=== PATIENT | male | born 1975 | race African-American/Black ===

== ENCOUNTER 2018-09-29 09:28 | Emergency (ER) | payer BC ==
[~2018-09-29] VITALS: Ht 187.9 cm; Wt 90.7 kg
--- NOTE | ~2018-09-29 | EKG ---
[place], [place] ELECTROCARDIOGRAM REPORT NAME: CIERA JOHNSON JR UNIT #: [id number] ROOM: DOCTOR: EPIPHANY DRAFT REPORT BIRTHDATE: [birth year] [facility] Test Date: 2018-09-29 Test Time: 10:18:46 Pat Name: CIERA JOHNSON Department: ER-3 Room: Gender: M Button Sawyer: Deneen Toscano : 1975 Requested By: FLORA LEE Order Number: [id number] Reading MD: Aparna Ann MD Measurements Intervals [place] Rate: 84 P: 82 DC: 154 QRS: -58 QRSD: 110 T: 64 QT: 388 QTc: 459 Interpretive Statements Sinus rhythm LAD, consider left anterior fascicular block Abnormal R-wave progression, early transition ST elevation suggests acute pericarditis Baseline wander in lead(s) V2 No previous ECG available for comparison Electronically Signed On 10-02-2018 12:04:32 PDT by Aparna Ann MD CM:EKGRPT:ELECTROCARDIOGRAM REPORT [id number] FLORA TAPIA DRAFT REPORT FLORA LEE MD
[2018-09-29 09:46] LABS: BASO # 0.1 10*3/uL (0.0-0.1); BASO % 0.4 % (0.0-1.0); EOS # 0.2 10*3/uL (0.0-0.4); HEMATOCRIT 49.9 % (42.0-52.0); HEMOGLOBIN 17.1 g/dl (14.0-18.0); LYMPH # 2.9 10*3/uL (1.3-4.4); LYMPH % 16.9 % (27.0-41.0); MEAN CELL VOLUME 91.2 fl (80.0-94.0); MEAN CORPUSCULAR HGB 31.3 pg (27.0-31.0); MEAN CORPUSCULAR HGB CONC 34.3 g/dl (33.0-37.0); MEAN PLATELET VOLUME 10.1 fl (9.6-12.3); NEUT # 13.1 10*3/uL (2.3-7.9); NEUT % 75.4 % (47.0-73.0); PLATELET COUNT AUTOMATED 329 10*3/uL (130-400); RED BLOOD COUNT 5.47 10*6/uL (4.50-5.90); RED CELL DISTRI WIDTH 12.7 % (0-14.5); WHITE BLOOD COUNT 17.3 10*3/uL (4.8-10.8)
[2018-09-29 10:00] LABS: ALBUMIN 4.7 gm/dl (3.1-4.5); ALKALINE PHOSPHATASE 86 U/L (45-117); BUN 11 mg/dl (7-24); CHLORIDE 111 mmol/L (98-107); CREATININE 0.93 mg/dL (0.70-1.30); SGOT/AST 26 IU/L (3-35); SGPT/ALT 29 U/L (12-78); SODIUM 143 mmol/L (136-145); TOTAL PROTEIN 8.6 gm/dL (6.4-8.2)
[2018-09-29 10:26] LABS: BILIRUBIN NEGATIVE (NEGATIVE); BLOOD NEGATIVE (NEGATIVE); CLARITY CLEAR (CLEAR); COLOR YELLOW (YELLOW); GLUCOSE NEGATIVE (NEGATIVE); KETONE 1+ (NEGATIVE); LEUKO ESTERASE NEGATIVE (NEGATIVE); NITRITE NEGATIVE (NEGATIVE); PH 5.5 (5.0-9.0); SPECIFIC GRAVITY >= 1.030 (1.005-1.030); UROBILINOGEN 0.2 E.U./dl (0.2-1.0)
[2018-09-29 10:33] LABS: URINE AMPHETAMINES < 1000 (1000ng/ml); URINE BARBITURATES < 200 (200ng/ml); URINE BENZODIAZEPINES < 200 (200ng/ml); URINE CANNABINOIDS (THC) > 50 (50ng/ml); URINE COCAINE > 300 (300ng/ml); URINE METHADONE < 300 (300ng/ml); URINE OPIATES < 300 (300ng/ml)
[2018-09-29 10:41] LABS: URINE PHENCYCLIDINE < 25 (25ng/ml)
[2018-09-29 10:51] LABS: BACTERIA 1+; MUCOUS 1+
== END 2018-09-30 19:41 | disposition home health service (06) ==
LOC: ED 09:28
PROVIDERS: Emergency Medicine
DX: F32.9 Major depressive disorder, single episode, unspecified (principal); F19.10 Other psychoactive substance abuse, uncomplicated; F14.90 Cocaine use, unspecified, uncomplicated

== ENCOUNTER 2021-12-15 09:19 | Emergency (ER) | payer OTHER ==
[~2021-12-15] VITALS: Ht 187.9 cm; Wt 89.8 kg
[2021-12-15] MEDS ORDERED: PREDNISONE50 MG PO ×3 (10:31→10:46)
[2021-12-15] MEDS ORDERED: EPIPEN 2-P0.3 MG/0.3 IJ ×3 (10:31→10:46)
== END 2021-12-15 10:39 | disposition home or self-care (01) ==
LOC: ED 09:19
DX: T63.441A Toxic effect of venom of bees, accidental (unintentional), initial encounter (principal); F17.200 Nicotine dependence, unspecified, uncomplicated; Y92.89 Other specified places as the place of occurrence of the external cause

== ENCOUNTER → 2022-09-14 | Outpatient (CLI) | payer OTHER, BC ==
[~2022-09-14] MED LIST: EPIPEN 2-P0.3 MG/0.3 IJ; PREDNISONE50 MG PO
[2022-09-14 10:45] LABS: BASO # 0.1 10*3/uL (0.0-0.1); BASO % 0.4 % (0.0-1.0); EOS # 0.1 10*3/uL (0.0-0.4); EOS % 1.3 % (1.0-4.0); HEMATOCRIT 46.9 % (42.0-52.0); LYMPH # 2.9 10*3/uL (1.3-4.4); LYMPH % 25.8 % (27.0-41.0); MEAN CELL VOLUME 88.5 fl (80.0-94.0); MEAN CORPUSCULAR HGB 30.4 pg (27.0-31.0); MEAN CORPUSCULAR HGB CONC 34.3 g/dl (33.0-37.0); MEAN PLATELET VOLUME 10.3 fl (9.6-12.3); MONO # 0.6 10*3/uL (0.1-1.0); MONO % 5.7 % (3.0-9.0); NEUT # 7.4 10*3/uL (2.3-7.9); NEUT % 66.5 % (47.0-73.0); PLATELET COUNT AUTOMATED 324 10*3/uL (130-400); RED CELL DISTRI WIDTH 13.1 % (0-14.5); WHITE BLOOD COUNT 11.2 10*3/uL (4.8-10.8)
== END | disposition home or self-care (01) ==
LOC: LAB 10:26
PROVIDERS: ATTEND Internal Medicine
DX: N52.9 Male erectile dysfunction, unspecified (principal)

== ENCOUNTER 2024-01-10 09:15 | Emergency (ER) | payer OTHER ==
[~2024-01-10] VITALS: Ht 185.4 cm; Wt 99.8 kg
[2024-01-10] MEDS ORDERED: PRILOSEC20 M1 PO (09:32)
[2024-01-10] MEDS ORDERED: ABILIFY5 MG PO (09:32)
[2024-01-10] MEDS ORDERED: CLARITIN10 MG PO (09:41)
== END 2024-01-10 09:50 | disposition home or self-care (01) ==
LOC: ED 09:15
DX: H65.192 Other acute nonsuppurative otitis media, left ear (principal); R42 Dizziness and giddiness; M54.2 Cervicalgia; Z98.890 Other specified postprocedural states

== ENCOUNTER 2025-03-17 08:52 | Emergency (ER) | payer OTHER ==
[~2025-03-17] VITALS: Ht 187.9 cm; Wt 99.8 kg
[~2025-03-17 08:52] MED LIST changes: +ABILIFY5 MG PO; +CLARITIN10 MG PO; +PRILOSEC20 M1 PO
[2025-03-17] MEDS ORDERED: Ondansetron Hydrochloride 4 MG/2 ML VIAL IV ONE (09:25)
[2025-03-17] MEDS ORDERED: SODIUM CHLORIDE 0.9% 1,000 ML IV ONE (09:25)
[2025-03-17 09:48] LABS: BASO # 0.1 10*3/uL (0.0-0.1); BASO % 0.7 % (0.0-1.0); EOS # 0.1 10*3/uL (0.0-0.4); EOS % 1.3 % (1.0-4.0); MEAN CELL VOLUME 88.2 fl (80.0-94.0); MEAN CORPUSCULAR HGB 29.6 pg (27.0-31.0); MEAN PLATELET VOLUME 10.0 fl (9.6-12.3); MONO # 0.7 10*3/uL (0.1-1.0); MONO % 6.9 % (3.0-9.0); NEUT # 5.3 10*3/uL (2.3-7.9); NEUT % 56.3 % (47.0-73.0); NUCLEATED RED BLOOD CELL 0.0 % (0.0-0.0); NUCLEATED RED BLOOD CELL 0.0 10*3/uL (0.0-0.0); PLATELET COUNT AUTOMATED 356 10*3/uL (130-400); RED CELL DISTRI WIDTH 13.0 % (0-14.5)
[2025-03-17] MEDS ORDERED: Ondansetron Hydrochloride 4 MG TAB PO ONE (10:15)
[2025-03-17] MEDS ORDERED: ACETAMINOPHEN 325 MG TAB PO ONE (10:15)
[2025-03-17 10:18] LABS: BILIRUBIN Negative (Negative); BLOOD Negative (Negative); CLARITY Clear (Clear); COLOR Yellow (Yellow); KETONE Trace (Negative); LEUKO ESTERASE Negative (Negative); NITRITE Negative (Negative); PH 6.5 (4.5-8.0); SPECIFIC GRAVITY 1.025 (1.001-1.030); UROBILINOGEN 1.0 E.U./dl (0.0-1.0)
[2025-03-17 10:20] LABS: BUN 15 mg/dl (9-23)
[2025-03-17 10:46] LABS: BACTERIA 1+; MUCOUS 3+
[2025-03-17] MEDS ORDERED: PREDNISONE20 M1 PO (11:17)
[2025-03-17] MEDS ORDERED: NAPROSYN500 MG PO (11:17)
[2025-03-17] MEDS ORDERED: HYDROCODONE-AC1 EAC1 PO (11:17)
[2025-03-17] MEDS ORDERED: METHOCARBAMOL750 M1 PO (11:17)
== END 2025-03-17 11:17 | disposition home or self-care (01) ==
LOC: ED 08:52
PROVIDERS: Emergency Medicine
DX: S29.012A Strain of muscle and tendon of back wall of thorax, initial encounter (principal); M62.830 Muscle spasm of back; R10.31 Right lower quadrant pain; X58.XXXA Exposure to other specified factors, initial encounter; Y93.89 Activity, other specified; Y92.89 Other specified places as the place of occurrence of the external cause; Y99.8 Other external cause status